=== PATIENT | female | born 1955 | race African-American/Black ===

== ENCOUNTER 2018-01-02 13:10 | Emergency (ER) | payer BC ==
[2018-01-02] MEDS ORDERED: guaiFENesin 200 MG/10 ML UDC PO ONE (14:33)
[2018-01-02] MEDS ORDERED: cefTRIAXone 1 GM in Sodium Chloride 0.9% 100 ML IV ONE (14:36)
[2018-01-02] MEDS ORDERED: Albuterol/Ipratropium Neb 3 ML AERS HHN ONE ×2 (14:37→14:44)
[2018-01-02] MEDS ORDERED: guaiFENesin 200 MG/10 ML UDC ONE (14:39)
[2018-01-02 15:14] LABS: % BASOPHILS 0.9 % (0.0-2.0); % EOSINOPHILS 11.9 % (0.0-5.0); % LYMPHOCYTES 41.8 % (20.0-50.0); % MONOCYTES 14.5 % (2.0-10.0); % NEUTROPHILS 30.9 % (40.0-80.0); EOSINOPHILE ABSOLUTE 0.5 Th/cmm (0.1-0.4); HEMATOCRIT 38.4 % (41.0-60); HEMOGLOBIN 12.6 gm/dL (12-16); LYMPHOCYTE ABSOLUTE 1.9 Th/cmm (1.5-3.0); MEAN CELL VOLUME 80.3 fl (81-100); MEAN CORPUSCULAR HEMOGLOBIN 26.3 pg (27.0-31.0); MEAN CORPUSCULAR HGB CONC 32.7 pg (28.0-36.0); MEAN PLATELET VOLUME 7.9 fl; MONOCYTE ABSOLUTE 0.6 Th/cmm (0.3-1.0); NEUTROPHILE ABSOLUTE 1.3 Th/cmm (1.8-8.0); PLATELET COUNT 232 Th/cmm (150-400); RED BLOOD COUNT 4.79 Mil/cmm (3.80-5.10); RED CELL DISTRIBUTION WIDTH 15.2 % (11.5-20.0); WHITE BLOOD COUNT 4.3 Th/cmm (4.8-10.8)
[2018-01-02 15:40] LABS: ALB/GLOB RATIO 1.3 (1.0-1.8); ALBUMIN 4.2 gm/dL (3.7-5.3); ANION GAP 10.6 (7.0-16.0); BILIRUBIN,TOTAL 0.5 mg/dL (0.3-1.0); CALCIUM SERUM 8.9 mg/dL (8.6-10.3); CARBON DIOXIDE 28.8 mEq/L (21.0-31.0); CREATININE - SERUM 1.2 mg/dL (0.6-1.2); GFR AFRICAN-AMERICAN 58.4 ml/min (>90); GFR NON AFRICAN-AMERICAN 48.2 ml/min; POTASSIUM SERUM 3.4 mEq/L (3.5-5.1); TOTAL PROTEIN,SERUM 7.5 gm/dL (6.0-8.3)
[2018-01-02] MEDS ORDERED: Potassium Chloride 20 mEq ER Tab PO ONE ×2 (15:56→16:01)
[2018-01-02 21:38] LABS: A1C % 6.4 % (4.0-6.0)
--- NOTE | 2018-01-03 00:53 | ER Physician Documentation ---
DATE OF SERVICE: 01/02/2018 A 62-year-old female patient. The patient was seen on 01/02/2018 at 1355 hours and the patient was seen by me at 1430 hours. CHIEF COMPLAINT: Cough, shortness of breath, difficulty breathing for the past 3 days. Not feeling good, having a cold, and having some wheezing. She cannot lie down and the patient came to the Emergency Room. HISTORY OF PRESENT ILLNESS: The patient apparently was fine 3 days ago. Her primary care physician is Dr. Zabala. She came from home, not from ambulance. The patient was triaged. The patient has symptoms of cough and shortness of breath. She does not have flu-like symptoms. Oxygen saturation is 94%. She is not in any pain. ALLERGIES: She is not allergic to any medications. CODE STATUS: Full. She is alert, oriented. Height is 5 feet 3 inches, weighing 240 pounds. Last menstrual period is 6/, 4, para 4. She did not take any flu vaccination. She drinks 1-2 glasses of wine at nighttime. REVIEW OF SYSTEMS: EYES: No history of double vision, blurring, blindness, conjunctivitis, or blepharitis. CENTRAL NERVOUS SYSTEM: No history of TIA, stroke, encephalitis, meningitis, headache, etc. ENDOCRINE: History of thyroid cancer. No history of diabetes mellitus. No history of any [place]'s syndrome. GASTROINTESTINAL: No history of diarrhea, constipation, or vomiting. GENITOURINARY: No burning, no frequency, no dysuria. BONES AND JOINTS: Some mild osteoporosis, otherwise benign and negative. CANCER HISTORY: Other than thyroid, no cancer. She said some parathyroid gland was also removed, but I do not see that she is taking any parathyroid gland medication. The patient's leg bones, joints, legs are all apparently negative and no history of that. The patient has no history of any myocardial infarction, rheumatic fever, valvular heart disease, etc. PAST SURGICAL HISTORY: Thyroidectomy and hysterectomy done. PERSONAL HISTORY: She has total of 4 children of her own. The patient's father has hypertension, asthma, and congestive heart failure. MEDICATIONS: The patient currently takes the following medications: Levothyroxine 150 mcg once a day; ____, metoprolol 100 mg in the ER, is extended release, once a day; and Benicar ____ mg once a day. PHYSICAL EXAMINATION: GENERAL: The patient appears to be awake, alert, oriented. She is wearing a mask. She is having a congested cough. NECK: Veins are not distended. Jugular venous pressure is normal. EXTREMITIES: No edema, no cyanosis, no petechia. No ecchymosis. Pulses in upper and lower extremities are well felt. No evidence of any deep vein thrombophlebitis. CHEST: Bilateral scattered rales and rhonchi audible in both the lung mcmahan, but there is no definite bronchial breathing. ABDOMEN: Soft and obese. Otherwise, benign and negative. CENTRAL NERVOUS SYSTEM: Within normal limits. HEART: Reveals normal heart sounds. No fourth heart sound. Second heart sound physiologically split. Third heart sound is absent. CLINICAL IMPRESSION: The patient has acute bronchitis. We will get the chest x-ray to rule out any pneumonia. The patient will be given Levaquin by mouth and ceftriaxone by IV, and we will get some lab workup done, get a T3, T4 level done. We will get the lipid level done, A1c level done to see if she has any diabetes mellitus. Her blood pressure is perfectly normal, 135/68, I believe she must have taken her medication. DIAGNOSES: 1. Acute bronchitis, rule out pneumonia. 2. Mild obesity. 3. History of thyroid cancer removed 2 years ago, perhaps with that part of the parathyroid gland might have been removed. 4. She has a history of hysterectomy, mother of 4 children. 5. History of hypertension. As soon as we get the things, we will try and send the patient home as soon as the nurses start to give the antibiotics and breathing treatment, chest x-ray, EKG. JOB# [id number]
== END 2018-01-02 16:20 | disposition home or self-care (01) ==
LOC: ER 13:10
DX: J20.9 Acute bronchitis, unspecified (principal); I10 Essential (primary) hypertension; E66.9 Obesity, unspecified; Z68.41 Body mass index [BMI] 40.0-44.9, adult
CPT/HCPCS: 99285; 96365; 94640; 93005; 36415; 84443; 85025; 83036; 83735; 80053; 84481; J0696; 80061-TC; 84479-90